=== PATIENT | female | born 1955 | race Caucasian/White ===

== ENCOUNTER 2016-05-06 19:56 | Emergency (ER) | payer MEDICARE, MEDICAID ==
[~2016-05-06] VITALS: Ht 167.6 cm; Wt 144.2 kg
[2016-05-06 19:56] VITALS: BP 137/64
[~2016-05-06 19:56] MED LIST: ALLO100T PO; ALPR1TAB10 PO; AMIT25TA PO; ASPI1TAB2 PO; CHOL100013 PO; CYCL10TA2 PO; DIVA125T PO; DULO60CA6 PO; FENT1PAT17 TD; FURO80TA72 PO; GABA-586 PO; HYDR25TA9 PO; INSU100C4 SQ; INSU100I17 SQ; INSU100I27 SQ; INSU100V8 SQ; LEVO100T PO; LISI10TA2 PO; MECL25TA3 PO; METF10002 PO; OXYC-250 PO; PANT40TA5 PO; POLY17PO5 PO; SUCR1TAB29 PO; TRIA15CR3 TP; Vitamin B 12
[2016-05-06] MEDS ORDERED: ACETAMINOPHEN 500 MG TABLET PO ONE (21:15)
--- NOTE | 2016-05-07 03:05 | ED.ADGEN ---
Past Medical History Past Medical History: Anemia, Arthritis, CHF, Diabetes-Type II, Fibromyalgia, Hypertension, P.U.D., Other Additional Past Medical Histor: HERNIA,SLEEP APNEA,fibromyalgia,DM uncontrolled ,Psorisis,IBS,OA,NEUROPATHY Past Surgical History: Appendectomy, Cholecystectomy, Other Additional Past Surgical Histo: LT KNEE SURGERY, LT CARPAL TUNNEL SURGERY Alcohol Use: Rarely Drug Use: None Adult General Chief Complaint Chief Complaint: MECHANICAL FALL HPI HPI Patient is a 60 year old woman, history of type 2 diabetes mellitus, hypertension, congestive heart failure, GI bleed, fibromyalgia, who presents to the emergency department for evaluation after mechanical fall. Patient states that she was walking to answer her door at home, when "my feet got tangled up", and she fell forward losing her balance and striking her head against the lever on her recliner in her living room. Patient states that she did not strike her head against the floor at that point, she fell landing onto her hands and knees. She states she was able to get up afterwards. Is complaining of pain in the right for head, denies any underlying headache, any vision changes, any nausea or vomiting, any weakness emesis or tingling, any chest pain, shortness of breath, GI or complaints, preceding symptoms. No respiratory complaints. No dizziness or lightheadedness. Noted to have swelling and a small area of abrasion over the right forehead. She does not take any blood thinners. Review of Systems Review of Systems Constitutional: Denies fever or chills. [] Eyes: Denies change in visual acuity. [] HENT: Denies nasal congestion or sore throat. [] Respiratory: Denies cough or shortness of breath. [] Cardiovascular: Denies chest pain or edema. [] GI: Denies abdominal pain, nausea, vomiting, bloody stools or diarrhea. [] : Denies dysuria. [] Musculoskeletal: Denies back pain or joint pain. [Pain and swelling over the right for head.] Integument: Denies rash. [] Neurologic: Denies headache, focal weakness or sensory changes. [] Endocrine: Denies polyuria or polydipsia. [] Lymphatic: Denies swollen glands. [] Psychiatric: Denies depression or anxiety. [] Current Medications Current Medications Current Medications Medications (Trade) Dose Ordered Sig/Jt Start Time Stop Time Status Last Admin Dose Admin Acetaminophen (Tylenol) 1,000 mg 1X ONCE 05/06/16 21:15 05/06/16 21:16 DC 05/06/16 21:38 1,000 MG Allergies Allergies Allergies Coded Allergies Type Severity Reaction Last Updated Verified milnacipran HCl Allergy Severe severe elevation of B/P 01/16/16 Yes pregabalin Allergy Intermediate swelling of extremities 01/16/16 Yes erythromycin base Allergy Mild rash 05/06/16 Yes Physical Exam Physical Exam Constitutional: Well developed, well nourished, no acute distress, non-toxic appearance. [] HENT: Normocephalic, patient with contusion noted over the right for head, with small overlying abrasion, no hemotympanum, no septal hematoma, bilateral external ears normal, oropharynx moist, no oral exudates, nose normal. [] Eyes: PERRLA, EOMI, conjunctiva normal, no discharge. [] Neck: Normal range of motion, no midline or paraspinal tenderness, supple, no stridor. [] Cardiovascular:Heart rate regular rhythm, no murmur, S1, S2. No rubs or gallops. [] Lungs & Thorax: Bilateral breath sounds clear to auscultation, no wheezing, rhonchi, rales. No chest wall tenderness or crepitus. [] Abdomen: Bowel sounds normal, soft, no tenderness, no masses, no pulsatile masses. [] Skin: Warm, dry, no erythema, no rash. [] Back: No midline or paraspinal tenderness, no CVA tenderness. [] Extremities: No tenderness, no cyanosis, no clubbing, ROM intact, no edema. [] Neurologic: Alert and oriented X 3, normal motor function, normal sensory function, no focal deficits noted. [] Psychologic: Affect normal, judgement normal, mood normal. [] Current Patient Data Vital Signs Vital Signs Date Time Temp Pulse Resp B/P Pulse Ox O2 Delivery O2 Flow Rate FiO2 05/06/16 19:56 98.3 91 20 137/64 98 Room Air 98.3 EKG EKG Not indicated. [] Radiology/Procedures Radiology/Procedures Not indicated. [] Course & Med Decision Making Course & Med Decision Making Pertinent Labs and Imaging studies reviewed. (See chart for details) Patient with a small contusion on her right forehead, normal neurologic examination, does not take any blood thinners, has no other concerning history and her report. We did discuss the utility of imaging of the head, at this point base of the patient's history and examination, I do not believe imaging is warranted, patient is in agreement with this assessment. We discussed concerning symptoms that would warrant return to the emergency department, patient voiced understanding with this as well, at this point she would like to be discharged home, and will return if any concerning symptoms develop. She has no other concerning findings on examination, was given Tylenol in the ED, and an ice pack for for her head. She did arrange for transport from the emergency room, and exited the ED without issue. Dragon Disclaimer Dragon Disclaimer This electronic medical record was generated, in whole or in part, using a voice recognition dictation system. Departure Impression: Primary Impression: Forehead contusion Disposition: 01 HOME, SELF-CARE Condition: STABLE Problem Qualifiers Primary Impression: Forehead contusion Encounter type: initial encounter Qualified Code: S00.83XA - Contusion of other part of head, initial encounter ALAYNA QUINONES DO May 07, 2016 03:05
== END 2016-05-06 21:44 | disposition home or self-care (01) ==
LOC: ER 19:56
DX: S00.83XA Contusion of other part of head, initial encounter (principal); E11.40 Type 2 diabetes mellitus with diabetic neuropathy, unspecified; I11.0 Hypertensive heart disease with heart failure; I50.9 Heart failure, unspecified; M79.7 Fibromyalgia; M19.90 Unspecified osteoarthritis, unspecified site; Z90.49 Acquired absence of other specified parts of digestive tract; G47.30 Sleep apnea, unspecified; Z88.1 Allergy status to other antibiotic agents; Z88.8 Allergy status to other drugs, medicaments and biological substances; W19.XXXA Unspecified fall, initial encounter; Y93.01 Activity, walking, marching and hiking; Y92.89 Other specified places as the place of occurrence of the external cause; Y99.8 Other external cause status
CPT/HCPCS: 99284

== ENCOUNTER → 2016-10-24 | Outpatient (CLI) | payer MEDICARE, MEDICAID ==
[~2016-10-24] MED LIST changes: +METF-620 PO; -METF10002 PO; -OXYC-250 PO; +OXYC-328 PO; +POLY17PO29 PO; -POLY17PO5 PO; -SUCR1TAB29 PO; +SUCR1TAB35 PO
--- NOTE | 2016-10-24 13:26 | KCIC ---
Clinical Indication: Postmenopausal screening Technique: Bone Densitometry was performed with dual photon absorption of the lumbar spine and proximal left femur. Comparison is from November 21, 2013. Findings: Lumbar Spine: Bone density is 1.437 g/cm2 for L1-L4. T-Score is 3.5 and Z-score 5.0. Age-matched percentage is 163 %. Left Femur Total: Bone density is 1.411 g/cm2. T-Score is 3.8 and Z-score 4.9. Age-matched percentage is 172%. Spine bone mineral density has decreased by 2.4 percent from prior. Hip bone mineral density has decreased by 0.5 percent from prior. Impression: 1. Normal bone mineral density in the lumbar spine. 2. Normal bone marrow density in the left hip. Electronically signed by: Maximus Rhodes MD (10/24/2016 1:23 PM) [facility]
--- NOTE | 2016-10-24 18:22 | KCIC ---
Bilateral digital screening mammograms: Reason for examination: Routine screening. Comparison is made to previous studies dated 07/03/2015 and 06/26/2014. The skin and nipples show no abnormalities. No abnormal axillary lymph nodes are seen. The breast parenchyma shows scattered fibroglandular density. (Breast density: Category B.) There continue to be small nodules consistent with intramammary lymph nodes in the right breast. There are no new dominant masses, suspicious calcifications or architectural distortions. Some benign calcifications are present. Impression: No evidence of malignancy. Recommend routine screening. BI-RADS category 2: Benign "Our facility is accredited by the [employer] Mammography Program." This patient's information has been entered into a reminder system for the patient to be notified with the results of her examination and a target date for the next mammogram. Electronically signed by: Shauna Gallegos MD (10/24/2016 6:19 PM) [facility]
== END | disposition home or self-care (01) ==
LOC: KCIC MAMMO 11:28
PROVIDERS: ATTEND Internal Medicine
DX: Z12.31 Encounter for screening mammogram for malignant neoplasm of breast (principal); Z78.0 Asymptomatic menopausal state
CPT/HCPCS: 77080; G0202; 77067

== ENCOUNTER 2017-03-03 08:18 | Outpatient (CLI) | payer MEDICARE, MEDICAID ==
[2017-03-03] VITALS (9 sets, daily range): BP systolic 93–145; BP diastolic 49–82
[~2017-03-03] VITALS: Ht 165.1 cm; Wt 149.7 kg
[~2017-03-03 08:18] MED LIST changes: +ASPI-621 PO; -ASPI1TAB2 PO; +LIDOCAINE 2% 20 ML VIAL. ONE
[2017-03-03 09:13] LABS: HEMATOCRIT 35.8 % (36.0-47.0); HEMOGLOBIN 11.4 g/dL (12.0-15.5); RED BLOOD COUNT 4.1 x10^6/uL (3.50-5.40); RED CELL DISTRIBUTION WIDTH 16.3 % (11.5-14.5)
[2017-03-03] MEDS ORDERED: MIDAZOLAM HCL/PF 5 MG/5 ML VIAL. ONE (09:15)
[2017-03-03] MEDS ORDERED: NITROGLYCERIN 200 MCG/2 ML SYRINGE FOR CATH/VASC LAB. ONE (09:15)
[2017-03-03] MEDS ORDERED: fentaNYL PF VIAL 100 MCG/2 ML VIAL ONE (09:15)
[2017-03-03] MEDS ORDERED: HEPARIN for IV BOLUS 10,000 UNIT/10 ML VIAL. ONE (09:15)
[2017-03-03] MEDS ORDERED: VERAPAMIL 5 MG/2 ML VIAL. ONE (09:15)
[2017-03-03 09:22] LABS: PROTHROMBIN TIME PATIENT 12.5 SEC (11.7-14.0)
[2017-03-03 09:33] LABS: CALCIUM 9.2 mg/dL (8.5-10.1); GFR 56.4; POTASSIUM 4.4 mmol/L (3.5-5.1)
[2017-03-03] MEDS ORDERED: LIDOCAINE 2% 20 ML VIAL. ONE (09:37)
[2017-03-03] MEDS ORDERED: IOHEXOL 300 MG/ML 100ML VIAL. ONE ×2 (09:37→09:38)
--- NOTE | 2017-03-03 09:52 | PDOC ---
MODERATE SEDATION ASSESSMENT RISKS/ALTERNATIVES Risks/Alternatives Risks and alternatives of this type of sedation and procedure discussed with: RISK/ALTERNATIVES: Patient H & P ON CHART H & P H & P on chart and reviewed for co-morbid conditions and appropriate labs. H&P ON CHART: Yes STATUS PREG STATUS ASSESSED: N/A MEDS/ALLERGIES REVIEWED Meds/Allergies Reviewed Medications and Allergies including time and route of recently administered narcotics and sedatives. MEDS/ALLERGIES REVIEWED: Yes ASA RATING ASA RATING: II AIRWAY ASSESSMENT Airway Assessment Airway patency, oral function limitations, presence of caps, crowns, dentures, partials, and ability to extend neck assessed. AIRWAY ASSESSMENT: Yes MALLAMPATI SCORE MALLAMPATI SCORE: II PRE-SEDATION ASSESSMENT PRE-SEDATION ASSESSMENT: Yes NEGRITO CAM MD Mar 03, 2017 09:52
[2017-03-03] MEDS ORDERED: VERAPAMIL 5 MG/2 ML VIAL. IART ONE (10:00)
[2017-03-03] MEDS ORDERED: LIDOCAINE 2% 20 ML VIAL. IJ ONE (10:00)
[2017-03-03] MEDS ORDERED: MIDAZOLAM HCL/PF 5 MG/5 ML VIAL. IV ONE (10:00)
[2017-03-03] MEDS ORDERED: HEPARIN for IV BOLUS 10,000 UNIT/10 ML VIAL. IART ONE (10:00)
[2017-03-03] MEDS ORDERED: NITROGLYCERIN 200 MCG/2 ML SYRINGE FOR CATH/VASC LAB. IART ONE (10:00)
[2017-03-03] MEDS ORDERED: CONTRAST GIVEN MC PRN (10:00)
[2017-03-03] MEDS ORDERED: IOHEXOL 300 MG/ML 100ML VIAL. IART ONE (10:00)
[2017-03-03] MEDS ORDERED: fentaNYL PF VIAL 100 MCG/2 ML VIAL IV ONE (10:00)
[2017-03-03] MEDS ORDERED: IV 1/2 NORMAL SALINE 1,000 ML IV SCH (10:27)
[2017-03-03] MEDS ORDERED: NITROGLYCERIN SUBLINGUAL 0.4 MG BOTTLE OF 25. SL PRN (10:30)
--- NOTE | 2017-03-03 10:37 | CARD ---
APPROVED REPORT Procedure(s) performed: Left heart catheterization, selective coronary angiography via right transrad ial approach Sedation time: 33 minutes INDICATION The indication(s) include : Recurrent and refractory chest pain concerning for unstable angina. CASE TECHNIQUE During this case, Fluoroscopy and low osmolar contrast were used for imaging. PROCEDURE NARRATIVE After explaining the risks, benefits and alternative options, informed consent was obtained from agnes ent. Patient was brought to the cardiac Cnc Cutting Operator and right wrist was prepped and draped in the usual fashion after confirming a positive modified Marek's test. Arterial access was obtained in the the [facility] radial artery and a 6 Japanese sheath was inserted. After initial attempts to engage coronary arteri es with 6 Japanese Bradford catheter were unsuccessful, 6 Japanese JL3.5 and 6 Japanese JR4 catheters were us ed to perform selective angiography of the left and right coronary arteries. LVEDP and transaortic gr adients were measured. Left ventriculography was not performed due to recent noninvasive assessment o f left ventricle systolic function. Patient tolerated the procedure well. Hemostasis was achieved us ing TR band. There were no immediate complications. The following findings were noted. FINDINGS 1. Hemodynamics: Left ventricular end-diastolic pressure of 22 mmHg. No pullback gradient across th e aortic valve. 2. Coronary angiography: a. The left main coronary artery arose from the left sinus of Valsalva, was short and gave rise to t he left anterior descending and left circumflex arteries and did not show any significant stenosis. b. The left anterior descending artery did not show any significant stenosis. c. The left circumflex artery did not show any significant stenosis. d. The right coronary artery was a large and dominant vessel arising from the right sinus of Valsalv a that did not show any significant stenosis. Conclusion No significant coronary artery disease Recommendations Cardiac Risk Reduction Program
== END 2017-03-03 12:45 | disposition home or self-care (01) ==
LOC: CCL 08:18
PROVIDERS: ATTEND Internal Medicine Cardiovascular Disease
DX: R07.9 Chest pain, unspecified (principal); I50.9 Heart failure, unspecified; E78.00 Pure hypercholesterolemia, unspecified; I11.0 Hypertensive heart disease with heart failure; E11.9 Type 2 diabetes mellitus without complications; E03.9 Hypothyroidism, unspecified; F41.9 Anxiety disorder, unspecified; F17.200 Nicotine dependence, unspecified, uncomplicated; M19.90 Unspecified osteoarthritis, unspecified site; D64.9 Anemia, unspecified; Z86.14 Personal history of Methicillin resistant Staphylococcus aureus infection; Z90.49 Acquired absence of other specified parts of digestive tract; Z96.652 Presence of left artificial knee joint; Z98.890 Other specified postprocedural states
CPT/HCPCS: 36415; 80048; 85027; 85610; 93458; 99152; 99153; C1769; C1892; J1644; J2250; J3010; J3490; Q9967; J2001

== ENCOUNTER → 2017-08-23 | Outpatient (CLI) | payer MEDICARE, MEDICAID | END | disposition home or self-care (01) | LOC: KCIC MRI 12:38 | DX: M19.011 Primary osteoarthritis, right shoulder (principal); M25.411 Effusion, right shoulder; M75.111 Incomplete rotator cuff tear or rupture of right shoulder, not specified as traumatic; M25.78 Osteophyte, vertebrae; M43.16 Spondylolisthesis, lumbar region; M48.07 Spinal stenosis, lumbosacral region | CPT/HCPCS: 72148; 73221 ==

== ENCOUNTER → 2017-08-23 | Outpatient (CLI) | payer MEDICARE, MEDICAID ==
[2017-08-23] MEDS: LIDOCAINE 1% Multi-Dose 20 ML VIAL. ID (15:20)
[2017-08-23] MEDS: IOHEXOL 300 MG/ML 10ML VIAL. INT ART (15:20)
[2017-08-23] MEDS: methylPREDNISolone ACETATE 40 MG/ML VIAL. INT ART (15:20)
[2017-08-23] MEDS: BUPIVACAINE MPF 0.5% 10 ML VIAL for KCIC. IJ (15:20)
== END | disposition home or self-care (01) ==
LOC: KCIC 12:30
DX: M19.011 Primary osteoarthritis, right shoulder (principal); I50.9 Heart failure, unspecified; E11.42 Type 2 diabetes mellitus with diabetic polyneuropathy; E78.00 Pure hypercholesterolemia, unspecified; I11.0 Hypertensive heart disease with heart failure; M19.90 Unspecified osteoarthritis, unspecified site; E03.9 Hypothyroidism, unspecified; F17.200 Nicotine dependence, unspecified, uncomplicated; D64.9 Anemia, unspecified; F41.9 Anxiety disorder, unspecified; Z98.890 Other specified postprocedural states; Z90.49 Acquired absence of other specified parts of digestive tract; Z85.41 Personal history of malignant neoplasm of cervix uteri; Z96.652 Presence of left artificial knee joint
CPT/HCPCS: 20610; 77002; J1030; Q9967

== ENCOUNTER → 2017-11-20 | Outpatient (CLI) | payer MEDICARE ==
[2017-03-03 12:29] VITALS: BP 102/56
[~2017-11-20] MED LIST changes: +ACET500T33 PO; +BISA-42 PO; +BUPIVACAINE MPF 0.5% 10 ML VIAL for KCIC. IJ ONE; +IOHEXOL 300 MG/ML 50 ML VIAL. INT ART ONE; +LIDOCAINE 1% Multi-Dose 20 ML VIAL. ID ONE; -LIDOCAINE 2% 20 ML VIAL. ONE; -METF-620 PO; +METF10003 PO; +MONT10TA9 PO; +TRAZ-85 PO; +methylPREDNISolone ACETATE 40 MG/ML VIAL. INT ART ONE
--- NOTE | 2017-11-20 16:02 | KCIC ---
Fluoroscopic guided right shoulder steroid injection dated 11/20/2017: No comparison available. Clinical Indication: Pain, steroid injection Technical factors: The potential benefits and risks of the procedure were discussed with the patient and informed consent was obtained. The anterior right shoulder was prepped and draped in a sterile fashion. After local anesthesia, a 22-gauge spinal needle was inserted into the right shoulder joint using an anterior approach.Following negative aspiration, a solution containing 4 cc lidocaine, 4 cc Omnipaque 300, 4 cc bupivacaine and 80 mg Depo-Medrol was injected the joint space. The needle was then removed and a dry sterile dressing was applied. The patient tolerated the procedure well. No immediate palpitations. 3 minutes 31 seconds fluoroscopic time used for the study. One image. Findings: Fluoroscopic image shows contrast material the joint space. There is also some extra articular contrast along the margin of the glenohumeral joint space. Impression: Fluoroscopic guided right shoulder steroid injection. Electronically signed by: Pasquale Osborne MD (11/20/2017 3:59 PM) [facility]
== END | disposition home or self-care (01) ==
LOC: KCIC 13:44
PROVIDERS: ATTEND Nurse Practitioner Gerontology
DX: M19.011 Primary osteoarthritis, right shoulder (principal); E03.9 Hypothyroidism, unspecified; F41.9 Anxiety disorder, unspecified; D64.9 Anemia, unspecified; I11.0 Hypertensive heart disease with heart failure; I50.9 Heart failure, unspecified; F17.200 Nicotine dependence, unspecified, uncomplicated; E78.00 Pure hypercholesterolemia, unspecified; M48.07 Spinal stenosis, lumbosacral region; G47.30 Sleep apnea, unspecified; E11.9 Type 2 diabetes mellitus without complications; Z79.4 Long term (current) use of insulin; Z79.899 Other long term (current) drug therapy; Z98.890 Other specified postprocedural states; Z85.41 Personal history of malignant neoplasm of cervix uteri; Z96.652 Presence of left artificial knee joint; Z90.49 Acquired absence of other specified parts of digestive tract
CPT/HCPCS: 20610; 77002; J1030; Q9967

== ENCOUNTER → 2017-11-20 | Outpatient (CLI) | payer MEDICAID, MEDICARE ==
[2017-03-03 12:29] VITALS: BP 102/56
--- NOTE | 2017-11-20 16:00 | KCIC ---
Fluoroscopic guided left shoulder steroid injection dated 11/20/2017: No comparison available. Clinical Indication: Gadolinium injection for MRI. Technical factors: The potential benefits and risks of the procedure were discussed with the patient and informed consent was obtained. The anterior left shoulder was prepped and draped in a sterile fashion. After local anesthesia, a 22-gauge spinal needle was inserted into the left shoulder joint using an anterior approach.Following negative aspiration, a solution containing 4 cc lidocaine, 4 cc Omnipaque 300, 4 cc bupivacaine and 80 mg Depo-Medrol was injected the joint space. The needle was then removed and a dry sterile dressing was applied. The patient tolerated the procedure well. No immediate palpitations. 30 seconds fluoroscopic time used for the study. One image. Findings: Single fluoroscopic image shows needle tip at the medial inferior 1/3 of the humeral head. Contrast material extends into the joint space. Impression: Fluoroscopic guided steroid injection as described. Electronically signed by: Pasquale Osborne MD (11/20/2017 3:57 PM) [facility]
== END | disposition home or self-care (01) ==
LOC: KCIC 13:46
PROVIDERS: ATTEND Orthopaedic Surgery Sports Medicine
DX: G89.29 Other chronic pain (principal); E03.9 Hypothyroidism, unspecified; F41.9 Anxiety disorder, unspecified; D64.9 Anemia, unspecified; M19.011 Primary osteoarthritis, right shoulder; I11.0 Hypertensive heart disease with heart failure; I50.9 Heart failure, unspecified; F17.200 Nicotine dependence, unspecified, uncomplicated; G47.30 Sleep apnea, unspecified; E11.9 Type 2 diabetes mellitus without complications; Z96.652 Presence of left artificial knee joint; Z79.899 Other long term (current) drug therapy; Z79.4 Long term (current) use of insulin; Z90.49 Acquired absence of other specified parts of digestive tract
CPT/HCPCS: 20610; 77002; J1030; Q9967

== ENCOUNTER → 2018-07-10 | Outpatient (CLI) | payer MEDICAID, MEDICARE ==
[2017-03-03 12:29] VITALS: BP 102/56
[~2018-07-10] MED LIST changes: -BUPIVACAINE MPF 0.5% 10 ML VIAL for KCIC. IJ ONE; -GABA-586 PO; +GABA300C18 PO; +HYDR-2145 PO; -HYDR25TA9 PO; -IOHEXOL 300 MG/ML 50 ML VIAL. INT ART ONE; -LIDOCAINE 1% Multi-Dose 20 ML VIAL. ID ONE; -METF10003 PO; +METF10007 PO; -OXYC-328 PO; +OXYC1TAB22 PO; +TRAZ-118 PO; -TRAZ-85 PO; -methylPREDNISolone ACETATE 40 MG/ML VIAL. INT ART ONE
--- NOTE | 2018-07-10 15:36 | CARD ---
MR#: [id number] Date of Study: 07/10/2018 Ordering Physician: NEGRITO ALDANA, Referring Physician: NEGRITO ALDANA, Tech: Radha Starr APPROVED REPORT EXAM: Two-dimensional and M-mode echocardiogram with Doppler and color Doppler. Other Information Quality : FairHR: 85bpm Technically limited study due to body habitus INDICATION Hypertension/HCVD RISK FACTORS Diabetes Previous smoker 2D DIMENSIONS IVSd1.1 (0.7-1.1cm)Aortic Root(2D)3.6 (2.0-3.7cm) LVDd4.6 (3.9-5.9cm)LVOT Diameter2.4 (1.8-2.4cm) PWd1.0 (0.7-1.1cm)LVDs3.3 (2.5-4.0cm) FS (%) 26.7 %SV50.0 ml LVEF(%)52.3 (>50%) Aortic Valve AoV Peak Destin.145.4cm/sAoV VTI29.2cm AO Peak GR.8.5mmHgLVOT Peak Destin.119.3cm/s LVOT VTI 26.96cmAO Mean GR.5mmHg CYNTHIA (VMAX)2.51hg6TXT (VTI)4.28cm2 Mitral Valve MV E Atmoyjqo21.2cm/sMV DECEL HNWU530ob MV A Eceqwelb829.8cm/sMV KCS67tb E/A Ratio0.6MVA (PHT)5.07cm2 TDI E/Lateral E'9.1E/Medial E'8.7 Pulmonary Valve PV Peak Ihtbltoa137.4cm/sPV Peak Grad.6mmHg Tricuspid Valve RAP [id number] Pulmonary Vein S1 Mhgeocgt90.2cm/sD2 Ykgtmymh30.1cm/s PVa [id number] LEFT VENTRICLE The left ventricle is normal size. There is normal left ventricular wall thickness. The left ventricu lar systolic function is normal. The Ejection Fraction is 55-60%. There is normal LV segmental wall m otion. Transmitral Doppler flow pattern is Grade I-abnormal relaxation pattern. RIGHT VENTRICLE The right ventricle is normal size. There is normal right ventricular wall thickness. The right ventr icular systolic function is normal. ATRIA The left atrium is borderline dilated. The right atrium size is normal. The interatrial septum is int act with no evidence for an atrial septal defect or patent foramen ovale as noted on 2-D or Doppler i maging. AORTIC VALVE The aortic valve is normal in structure and function. Doppler and Color Flow revealed trace aortic re gurgitation. There is no significant aortic valvular stenosis. MITRAL VALVE The mitral valve is normal in structure and function. There is no evidence of mitral valve prolapse. There is no mitral valve stenosis. Doppler and Color Flow revealed no mitral valve regurgitation note d. TRICUSPID VALVE The tricuspid valve is not well visualized. Doppler and Color Flow revealed no tricuspid valve regurg itation noted. PULMONIC VALVE The pulmonic valve is not well visualized. Doppler and Color Flow revealed no pulmonic valvular regur gitation. GREAT VESSELS The aortic root is mildly enlarged. The IVC was not well visualized. PERICARDIAL EFFUSION There is no evidence of significant pericardial effusion. Critical Notification Critical Value: No <Conclusion> The left ventricular systolic function is normal. The Ejection Fraction is 55-60%. There is normal LV segmental wall motion. Transmitral Doppler flow pattern is Grade I-abnormal relaxation pattern. Doppler and Color Flow revealed trace aortic regurgitation. There is no evidence of significant pericardial effusion. Signed by : Negrito Aldana, Electronically Approved : 07/10/2018 15:35:46
== END | disposition home or self-care (01) ==
LOC: ECHO 13:23
PROVIDERS: ATTEND Internal Medicine Cardiovascular Disease
DX: I77.89 Other specified disorders of arteries and arterioles (principal); I10 Essential (primary) hypertension; E11.9 Type 2 diabetes mellitus without complications; Z87.891 Personal history of nicotine dependence
CPT/HCPCS: 93306

== ENCOUNTER → 2018-08-07 | Outpatient (CLI) | payer MEDICARE ==
[2017-03-03 12:29] VITALS: BP 102/56
--- NOTE | 2018-08-07 14:33 | RESP ---
DATE OF SERVICE: 08/07/2018 PULMONARY FUNCTION TEST REFERRED BY: Luann Gutierrez APRN The patient's FVC was 2.65, which is 78% predicted; FEV1 2.16, which is 83% predicted. The FEV1/FVC ratio was normal. Total lung capacity was 89% predicted. Residual volume normal. Diffusion capacity 82% predicted. IMPRESSION: 1. No significant obstructive airway disease. 2. No significant restrictive lung disease. 3. Normal diffusion capacity. 4. No bronchodilators given. HUI AVITIA MD DR: RUMA/kimberly JOB#: [id number] / [id number]
== END | disposition home or self-care (01) ==
LOC: PF 10:05
PROVIDERS: ATTEND Nurse Practitioner Gerontology
DX: R06.02 Shortness of breath (principal)
CPT/HCPCS: 94010; 94729

== ENCOUNTER → 2018-08-21 | Outpatient (CLI) | payer MEDICARE ==
[2017-03-03 12:29] VITALS: BP 102/56
--- NOTE | 2018-08-22 13:19 | SLEEP ---
DATE OF STUDY: 08/21/2018 ATTENDING PROVIDER: Kayce Gutierrez APRN The patient is a 62-year-old who weighs 335 pounds with a BMI of 56. The patient had a sleep study in 2014 that was positive for LUIS and has been on CPAP at 14 cm water. She was referred back for requalification for a new equipment. During the night study, the patient spent 442 minutes in bed and slept for 307 minutes with a sleep efficiency of 69%. Sleep latency was prolonged at 64 minutes with absent REM sleep. Overall sleep architecture showed increased stage 1 and stage 2 sleep, normal slow wave sleep and absent REM sleep. During the initial diagnostic portion of the study, the patient slept for 148 minutes. During that time there were 2 obstructive apneas, 1 mixed apnea, 1 central apnea and 45 hypopneas. The patient's apnea-hypopnea index was 20 per hour, supine index 20 per hour. REM sleep was not observed. EKG monitoring revealed an average heart rate of 86 beats per minute, no sustained arrhythmias were observed. Nocturnal oximetry study revealed a mean oxygen saturation of 88% with the lowest of 81%. 38% of time oxygen saturation remained between 80% and 89%. PLMS were seen at index of 20 per hour and 1 per hour caused EEG arousals. The patient was started on CPAP at a pressure of 5 cm water and titrated up to 14 cm water. At the final pressure the patient slept for 55 minutes. The patient had supine sleep throughout, but no REM sleep observed. The patient's AHI was reduced to 1 per hour and oxygen saturation remained above 89%. The patient used a small size nasal mask. IMPRESSION: 1. Moderate sleep apnea-hypopnea syndrome at an apnea-hypopnea index of 20 per hour. Absence of REM sleep can underestimate the severity of sleep apnea. 2. Nocturnal hypoxia secondary to obstructive sleep apnea and hypoventilation, but resolved with CPAP. 3. Moderate periodic limb movements of sleep. RECOMMENDATIONS: 1. CPAP at 14 cm water completely eliminated the patient's sleep apnea, should be used on a nightly basis. 2. Follow up in 4-6 weeks to assess compliance with CPAP and to document clinical improvement. 3. Weight loss is strongly advised. 4. Avoid [employer] depressants. 5. Cautioned regarding driving until symptoms of sleep apnea have resolved with the use of CPAP. 6. PLMS does not need to be treated unless the patient has symptoms of restless legs during the day. HUI AVITIA MD DR: RUMA/kimberly JOB#: [id number] / [id number] KAYCE Brown APRN
== END | disposition home or self-care (01) ==
LOC: SLPLAB 20:59
PROVIDERS: ATTEND Nurse Practitioner Gerontology
DX: G47.33 Obstructive sleep apnea (adult) (pediatric) (principal); G47.34 Idiopathic sleep related nonobstructive alveolar hypoventilation; G47.61 Periodic limb movement disorder
CPT/HCPCS: 95810

== ENCOUNTER → 2018-11-06 | Outpatient (CLI) | payer MEDICARE ==
[2017-03-03 12:29] VITALS: BP 102/56
[~2018-11-06] MED LIST changes: +MONT10TA49 PO; -MONT10TA9 PO; -PANT40TA5 PO; +PANT40TA77 PO
--- NOTE | 2018-11-06 17:11 | KCIC ---
Examination: 2 views of the chest HISTORY: History of shortness of breath COMPARISON: None available. FINDINGS: The cardiomediastinal silhouette grossly appears unremarkable. Minimal prominent bilateral interstitial lung markings. Mild degenerative changes thoracic spine. IMPRESSION: 1. Probable mild congestive changes. Electronically signed by: Fredo Jamil MD (11/06/2018 5:08 PM) [facility]
--- NOTE | 2018-11-06 17:37 | KCIC ---
4 view lumbar spine series Clinical indications: Acute midline low back pain. Several falls. FINDINGS: No compression fracture or discitis or lytic process is evident. Grade 1 anterolisthesis of L4-5 and L5-S1 is seen. This is more prominent at L4-5. Degenerative facet arthropathy is seen at these 2 levels. No definite lucent pars defect is seen at these 2 levels. Degenerative disc space narrowing and mild degenerative endplate spurring is seen from L3-4 through L5-S1. The transverse processes are intact. IMPRESSION: No acute compression fracture. Grade 1 anterolisthesis of L4-5 and L5-S1. Electronically signed by: Zac Paz MD (11/06/2018 5:33 PM) [facility]
== END | disposition home or self-care (01) ==
LOC: KCIC 15:07
PROVIDERS: ATTEND Nurse Practitioner Gerontology
DX: M43.17 Spondylolisthesis, lumbosacral region (principal); M48.07 Spinal stenosis, lumbosacral region; M46.86 Other specified inflammatory spondylopathies, lumbar region; M46.07 Spinal enthesopathy, lumbosacral region; M47.814 Spondylosis without myelopathy or radiculopathy, thoracic region
CPT/HCPCS: 71046; 72100

== ENCOUNTER → 2019-11-28 | Outpatient (CLI) | payer MEDICAID, MEDICARE ==
[2017-03-03 12:29] VITALS: BP 102/56
[~2019-11-28] MED LIST changes: +LEVO-101 PO; -LEVO100T PO; +MECL-75 PO; -MECL25TA3 PO
--- NOTE | 2019-11-29 17:13 | KCIC ---
BILATERAL SCREENING MAMMOGRAM History: Routine screening. Comparison: Bilateral mammogram June 18, 2018. Technique: Routine bilateral digital mammogram views were obtained. Findings: Breast Tissue Density B : There are scattered areas of fibroglandular density. There are multiple bilateral benign calcifications. There is stable intramammary lymph node in the upper outer right breast at mid depth. There are no dominant masses, suspicious microcalcifications, or architectural distortion. IMPRESSION: No mammographic evidence of malignancy. Recommend routine screening. BI-RADS category 2: Benign findings. The images were reviewed with computer aided detection. Patient information is entered into the reminder system with a target due date for the next screening mammogram. Mammography is the most sensitive method for finding small breast cancers, but it does not detect them all and is not a substitute for careful clinical examination. A negative mammogram does not negate a clinically suspicious finding and should not result in delay in biopsying a clinically suspicious abnormality. "Our facility is accredited by the [employer] Mammography Program." Electronically signed by: Adrian Higginbotham MD (11/29/2019 5:10 PM) [facility]
== END | disposition home or self-care (01) ==
LOC: KCIC MAMMO 13:57
PROVIDERS: ATTEND Nurse Practitioner Gerontology
DX: Z12.31 Encounter for screening mammogram for malignant neoplasm of breast (principal); N64.89 Other specified disorders of breast
CPT/HCPCS: 77067

== ENCOUNTER 2020-05-21 17:35 | Emergency (ER) | payer MEDICARE ==
[~2020-05-21] VITALS: Ht 167.6 cm; Wt 150.0 kg
[~2020-05-21 17:35] MED LIST changes: +LISI10TA16 PO; -LISI10TA2 PO
[2020-05-21] MEDS ORDERED: FAMOTIDINE 20 MG/2 ML VIAL IVP ONE (18:30)
[2020-05-21] MEDS ORDERED: ONDANSETRON PF 4 MG/2 ML VIAL. IVP ONE (18:30)
[2020-05-21] MEDS ORDERED: MORPHINE SULFATE 10 MG/ML VIAL. IV ONE (18:30)
[2020-05-21 18:34] LABS: BILIRUBIN,URINE NEGATIVE (NEG); CLARITY,URINE CLEAR; COLOR,URINE YELLOW; NITRITE,URINE NEGATIVE (NEG); PROTEIN,URINE NEGATIVE (NEG-TRACE)
[2020-05-21 18:40] LABS: BARBITURATES NEG (NEG); BENZODIAZEPINES NEG (NEG); CANNABINOIDS NEG (NEG); COCAINE NEG (NEG); METHADONE NEG (NEG); OPIATES POS (NEG); PHENCYCLIDINE NEG (NEG)
[2020-05-21 18:41] LABS: AMPHETAMINE/METHAMPHETAMINE NEG (NEG)
[2020-05-21 18:45] LABS: BACTERIA,URINE FEW /HPF (0-FEW); RBC,URINE 0 /HPF (0-2)
[2020-05-21 19:19] LABS: BASO # 0.1 x10^3/uL (0.0-0.2); BASO % 1 % (0-3); EOS # 0.3 x10^3/uL (0.0-0.7); EOS % 3 % (0-3); HEMATOCRIT 25.9 % (36.0-47.0); HEMOGLOBIN 7.9 g/dL (12.0-15.5); LYMPH % 19 % (24-48); MEAN CORPUSCULAR HEMOGLOBIN 22 pg (25-35); MEAN CORPUSCULAR HGB CONC 30 g/dL (31-37); MEAN CORPUSCULAR VOLUME 73 fL (79-100); MONO % 9 % (0-9); NEUT # 7.4 x10^3/uL (1.8-7.7); NEUT % 68 % (31-73); PLATELET COUNT 352 x10^3/uL (140-400); RED BLOOD COUNT 3.54 x10^6/uL (3.50-5.40); RED CELL DISTRIBUTION WIDTH 17.2 % (11.5-14.5); WHITE BLOOD COUNT 10.8 x10^3/uL (4.0-11.0)
[2020-05-21 19:31] LABS: CALCIUM 9.5 mg/dL (8.5-10.1); GFR 55.8
[2020-05-21 19:35] LABS: ALBUMIN 3.2 g/dL (3.4-5.0); ALBUMIN/GLOBULIN RATIO 0.7 (1.0-1.7); MAGNESIUM 1.7 mg/dL (1.8-2.4); TOTAL BILIRUBIN 0.2 mg/dL (0.2-1.0); TOTAL PROTEIN 7.8 g/dL (6.4-8.2)
[2020-05-21] MEDS ORDERED: IOHEXOL 350 MG/ML 100 ML VIAL. IV ONE (20:00)
[2020-05-21] MEDS ORDERED: CONTRAST GIVEN. MC PRN (20:00)
[2020-05-21 20:16] LABS: ANISOCYTOSIS SLIGHT; PLT ESTIMATE ADEQUATE (ADEQUATE)
[2020-05-21 20:17] LABS: HYPOCHROMIA SLIGHT; MICROCYTOSIS MOD; POLYCHROMASIA SLIGHT
[2020-05-21] MEDS ORDERED: HYDROmorphone 2 MG/ML VIAL IVP ONE (20:30)
--- NOTE | 2020-05-21 20:45 | RAD ---
Exam: CT of chest, abdomen and pelvis with contrast INDICATION: Short of air TECHNIQUE: Sequential axial images through the chest, abdomen and pelvis obtained following the admin istration of 90 mL Omni 350 IV contrast. Sagittal and coronal reformatted images were reconstructed f rom the axial data and reviewed. Comparisons: Chest x-ray 11/06/2018 FINDINGS: Visualized portions of the thyroid are unremarkable. No enlarged mediastinal lymph nodes are identifi ed. Heart size is normal. No pericardial effusion. Thoracic aorta has a normal course and caliber. Pulmon mary lou artery is not enlarged. No pulmonary embolus identified within the main, lobar or segmental pulmo nary arteries. Airways are patent. No consolidation or pneumothorax. No suspicious lung nodules are identified. No p leural effusion or thickening. There is a hypoattenuating lesions noted within the inferior right hepatic lobe series 5 image 34 whi ch measures 1.5 cm incompletely characterized on this study. Otherwise, liver, spleen, pancreas and a drenals are unremarkable. Gallbladder is absent. No perinephric inflammation or hydronephrosis. Evaluation for renal calculi limited secondary to leo y excretion. No perinephric inflammation or hydronephrosis. No ureteral calculi are identified. Bladder is partially distended and not well evaluated. Uterus is not enlarged. No abnormal adnexal ma ss. Large and small bowel are unremarkable. Appendix is not identified. No free intra-abdominal air or fl uid. No obstruction. Abdominal aorta has a normal course caliber. Abdominal vasculature is patent. No enlarged abdominal lymph nodes are identified. No suspicious osseous lesions or acute fractures. There is a paraumbilical hernia which contains fat. IMPRESSION: 1. No pulmonary embolus identified within the main, lobar or segmental pulmonary arteries. 2. No acute process identified within the abdomen or pelvis. 3. Small fat-containing periumbilical hernia measuring up to 7.3 x 3.6 cm transverse dimension. No h erniated bowel or evidence for obstruction. 4. Incompletely evaluated hepatic lesion measuring up to 1.5 cm. Further evaluation with nonemergent /outpatient liver protocol CT or MRI is recommended. Exposure: One or more of the following in the visualized dose reduction techniques were utilized for this examination: 1. Automated exposure control 2. Adjustment of the MA and/or KV according to patient size 3. Use of iterative of reconstructive technique Electronically signed by: Ludwig Webb MD (05/21/2020 8:43 PM) [facility]
[2020-05-21 21:03] VITALS: BP 125/58
--- NOTE | 2020-05-21 21:57 | PHYS DOC ---
Past Medical History Past Medical History: Anemia, Arthritis, CHF, Diabetes-Type II, Fibromyalgia, Hypertension, P.U.D., Other Additional Past Medical Histor: HERNIA,SLEEP APNEA,NEUROPATHY Past Surgical History: Appendectomy, Cholecystectomy, Other Additional Past Surgical Histo: LT KNEE SURGERY, LT CARPAL TUNNEL SURGERY Smoking Status: Former Smoker Alcohol Use: Rarely Drug Use: None General Adult EDM: Chief Complaint: ABDOMINAL PAIN HPI: HPI: Patient is a 64 year old female with history of hypertension, arthritis, anemia, GI bleed, high cholesterol, diabetes type 2, fibromyalgia, who presents to the ED today complaining of shortness of breath that is chronic but has gotten worse in the last 2 weeks. Also complaining of 8 out of 10 generalized mid abdominal pain. Denies anything exacerbating or relieving her abdominal pain. She states her shortness of breath is worse on exertion. Denies any diarrhea. Reports nausea. She states she was seen at the PCPs office, labs were drawn, she was noted to be anemic and also noted to have an elevated D- dimer. Review of Systems: Review of Systems: Constitutional: Denies fever or chills. [] Eyes: Denies change in visual acuity. [] HENT: Denies nasal congestion or sore throat. [] Respiratory: Reports chronic shortness of breath, denies cough Cardiovascular: Denies chest pain or edema. [] GI: Reports abdominal pain with nausea, denies vomiting, bloody stools or diarrhea. [] : Denies dysuria. [] Musculoskeletal: Denies back pain or joint pain. [] Integument: Denies rash. [] Neurologic: Denies headache, focal weakness or sensory changes. [] Psychiatric: Denies depression or anxiety. [] Heart Score: Risk Factors: Risk Factors: DM, Current or recent (<one month) smoker, HTN, HLP, family history of CAD, obesity. Risk Scores: Score 0 - 3: 2.5% MACE over next 6 weeks - Discharge Home Score 4 - 6: 20.3% MACE over next 6 weeks - Admit for Clinical Observation Score 7 - 10: 72.7% MACE over next 6 weeks - Early Invasive Strategies Current Medications: Current Medications Medications (Trade) Dose Ordered Sig/Jt Start Time Stop Time Status Last Admin Dose Admin Famotidine (Pepcid Vial) 20 mg 1X ONCE 05/21/20 18:30 05/21/20 18:31 DC 05/21/20 19:11 20 MG Hydromorphone HCl (Dilaudid) 1 mg 1X ONCE 05/21/20 20:30 05/21/20 20:31 DC 05/21/20 20:55 1 MG Info (CONTRAST GIVEN -- Rx MONITORING) 1 each PRN DAILY PRN 05/21/20 20:00 05/23/20 19:59 Iohexol (Omnipaque 350 Mg/ml) 90 ml 1X ONCE 05/21/20 20:00 05/21/20 20:01 DC 05/21/20 20:04 90 ML Morphine Sulfate (Morphine Sulfate) 5 mg 1X ONCE 05/21/20 18:30 05/21/20 18:31 DC 05/21/20 19:11 5 MG Ondansetron HCl (Zofran) 4 mg 1X ONCE 05/21/20 18:30 05/21/20 18:31 DC 05/21/20 19:11 4 MG Allergies: Allergies: Allergies Coded Allergies Type Severity Reaction Last Updated Verified milnacipran HCl Allergy Severe severe elevation of B/P 01/16/16 Yes pregabalin Allergy Intermediate swelling of extremities 01/16/16 Yes erythromycin base Allergy Mild rash 05/06/16 Yes Physical Exam: PE: Constitutional: Morbidly obese patient, no acute distress, non-toxic appearance. [] HENT: Normocephalic, atraumatic, bilateral external ears normal, oropharynx moist, no oral exudates, nose normal. [] Eyes: PERRLA, EOMI, conjunctiva normal, no discharge. [] Neck: Normal range of motion, no tenderness, supple, no stridor. [] Cardiovascular:Heart rate regular rhythm, no murmur [] Lungs & Thorax: Bilateral breath sounds clear to auscultation [] Abdomen: Old healed surgical incision noted midline abdomen. Bowel sounds normal, soft, no tenderness, no masses, no pulsatile masses. [] Skin: Warm, dry, no erythema, no rash. [] Back: No tenderness, no CVA tenderness. [] Extremities: No tenderness, no cyanosis, no clubbing, ROM intact, no edema. [] Neurologic: Alert and oriented X 3, normal motor function, normal sensory function, no focal deficits noted. [] Psychologic: Affect normal, judgement normal, mood normal. [] Current Patient Data: Labs: Laboratory Tests Test 05/21/20 18:10 05/21/20 18:45 Urine Collection Type Void Urine Color Yellow Urine Clarity Clear Urine pH 5.0 (<5.0-8.0) Urine Specific [place]ville 1.025 (1.000-1.030) Urine Protein Negative mg/dL (NEG-TRACE) Urine Glucose (UA) Negative mg/dL (NEG) Urine Ketones (Stick) Negative mg/dL (NEG) Urine Blood Negative (NEG) Urine Nitrite Negative (NEG) Urine Bilirubin Negative (NEG) Urine Urobilinogen Dipstick 1.0 mg/dL (0.2 mg/dL) Urine Leukocyte Esterase Small (NEG) Urine RBC 0 /HPF (0-2) Urine WBC 5-10 /HPF (0-4) Urine Squamous Epithelial Cells Mod /LPF Urine Bacteria Few /HPF (0-FEW) Urine Mucus Slight /LPF Urine Opiates Screen Pos (NEG) Urine Methadone Screen Neg (NEG) Urine Barbiturates Neg (NEG) Urine Phencyclidine Screen Neg (NEG) Urine Amphetamine/Methamphetamine Neg (NEG) Urine Benzodiazepines Screen Neg (NEG) Urine Cocaine Screen Neg (NEG) Urine Cannabinoids Screen Neg (NEG) Urine Ethyl Alcohol Neg (NEG) White Blood Count 10.8 x10^3/uL (4.0-11.0) Red Blood Count 3.54 x10^6/uL (3.50-5.40) Hemoglobin 7.9 g/dL (12.0-15.5) L Hematocrit 25.9 % (36.0-47.0) L Mean Corpuscular Volume 73 fL (79-100) L Mean Corpuscular Hemoglobin 22 pg (25-35) L Mean Corpuscular Hemoglobin Concent 30 g/dL (31-37) L Red Cell Distribution Width 17.2 % (11.5-14.5) H Platelet Count 352 x10^3/uL (140-400) Neutrophils (%) (Auto) 68 % (31-73) Lymphocytes (%) (Auto) 19 % (24-48) L Monocytes (%) (Auto) 9 % (0-9) Eosinophils (%) (Auto) 3 % (0-3) Basophils (%) (Auto) 1 % (0-3) Neutrophils # (Auto) 7.4 x10^3/uL (1.8-7.7) Lymphocytes # (Auto) 2.0 x10^3/uL (1.0-4.8) Monocytes # (Auto) 1.0 x10^3/uL (0.0-1.1) Eosinophils # (Auto) 0.3 x10^3/uL (0.0-0.7) Basophils # (Auto) 0.1 x10^3/uL (0.0-0.2) Platelet Estimate Adequate (ADEQUATE) Polychromasia Slight Hypochromasia Slight Anisocytosis Slight Microcytosis Mod Sodium Level 139 mmol/L (136-145) Potassium Level 5.0 mmol/L (3.5-5.1) Chloride Level 103 mmol/L (98-107) Carbon Dioxide Level 26 mmol/L (21-32) Anion Gap 10 (6-14) Blood Urea Nitrogen 22 mg/dL (7-20) H Creatinine 1.0 mg/dL (0.6-1.0) Estimated GFR (Cockcroft-Gault) 55.8 BUN/Creatinine Ratio 22 (6-20) H Glucose Level 215 mg/dL (70-99) H Calcium Level 9.5 mg/dL (8.5-10.1) Magnesium Level 1.7 mg/dL (1.8-2.4) L Total Bilirubin 0.2 mg/dL (0.2-1.0) Aspartate Amino Transferase (AST) 28 U/L (15-37) Alanine Aminotransferase (ALT) 22 U/L (14-59) Alkaline Phosphatase 96 U/L (46-116) Troponin I Quantitative < 0.017 ng/mL (0.000-0.055) NC-Ond-G-Type Natriuretic Peptide 26 pg/mL (0-124) Total Protein 7.8 g/dL (6.4-8.2) Albumin 3.2 g/dL (3.4-5.0) L Albumin/Globulin Ratio 0.7 (1.0-1.7) L Laboratory Tests 05/21/20 18:45 Laboratory Tests 05/21/20 18:45 Vital Signs: Vital Signs Date Time Temp Pulse Resp B/P (MAP) Pulse Ox O2 Delivery O2 Flow Rate FiO2 05/21/20 21:03 101 19 125/58 (80) 95 Room Air 05/21/20 18:05 99.8 99.8 EKG: EK Interpreted by Dr. Vasquez sinus rhythm HR 99 no STEMI[] Radiology/Procedures: Radiology/Procedures: []PROCEDURE: CT ANGIO CHEST W ABD PEL W/ Exam: CT of chest, abdomen and pelvis with contrast INDICATION: Short of air TECHNIQUE: Sequential axial images through the chest, abdomen and pelvis obtained following the administration of 90 mL Omni 350 IV contrast. Sagittal and coronal reformatted images were reconstructed from the axial data and reviewed. Comparisons: Chest x-ray 11/06/2018 FINDINGS: Visualized portions of the thyroid are unremarkable. No enlarged mediastinal lymph nodes are identified. Heart size is normal. No pericardial effusion. Thoracic aorta has a normal course and caliber. Pulmonary artery is not enlarged. No pulmonary embolus identified within the main, lobar or segmental pulmonary arteries. Airways are patent. No consolidation or pneumothorax. No suspicious lung nodules are identified. No pleural effusion or thickening. There is a hypoattenuating lesions noted within the inferior right hepatic lobe series 5 image 34 which measures 1.5 cm incompletely characterized on this study. Otherwise, liver, spleen, pancreas and adrenals are unremarkable. Gallbladder is absent. No perinephric inflammation or hydronephrosis. Evaluation for renal calculi limited secondary to early excretion. No perinephric inflammation or hydroneph rosis. No ureteral calculi are identified. Bladder is partially distended and not well evaluated. Uterus is not enlarged. No abnormal adnexal mass. Large and small bowel are unremarkable. Appendix is not identified. No free intra-abdominal air or fluid. No obstruction. Abdominal aorta has a normal course caliber. Abdominal vasculature is patent. No enlarged abdominal lymph nodes are identified. No suspicious osseous lesions or acute fractures. There is a paraumbilical hernia which contains fat. IMPRESSION: 1. No pulmonary embolus identified within the main, lobar or segmental pulmonary arteries. 2. No acute process identified within the abdomen or pelvis. 3. Small fat-containing periumbilical hernia measuring up to 7.3 x 3.6 cm transverse dimension. No herniated bowel or evidence for obstruction. 4. Incompletely evaluated hepatic lesion measuring up to 1.5 cm. Further evaluation with nonemergent/outpatient liver protocol CT or MRI is recommended. Exposure: One or more of the following in the visualized dose reduction techniques were utilized for this examination: 1. Automated exposure control 2. Adjustment of the MA and/or KV according to patient size 3. Use of iterative of reconstructive technique Electronically signed by: Ludwig Hamilton MD (05/21/2020 8:43 PM) [facility] DICTATED and SIGNED BY: LUDIWG HAMILTON MD DATE: 05/21/[id number] 0 Course & Med Decision Making: Course & Med Decision Making Pertinent Labs and Imaging studies reviewed. (See chart for details) This is a 64-year-old female patient presenting to the ED today complaining of chronic shortness of breath, abdominal pain for 2 weeks. Was seen at the PCPs office and noted to have an elevated D-dimer. CBC with hemoglobin of 7.9, 25.9. Hematocrit, CMP with glucose of 255, anion gap is normal. UA noted for small amount of leukocytes but it is contaminated with squamous cells epithelium. CTA chest abdomen and pelvis is negative for PE, noted for liver lesion which I discussed with patient, noted for umbilical hernia. Discharge to home. Follow-up with PCP and GI. Bernarda Disclaimer: Bernarda Disclaimer: This electronic medical record was generated, in whole or in part, using a voice recognition dictation system. Departure Departure Impression: Primary Impression: Abdominal pain Qualified Codes: R10.33 - Periumbilical pain Additional Impressions: Shortness of breath Anemia Qualified Codes: D64.9 - Anemia, unspecified Disposition: 01 DC HOME SELF CARE/HOMELESS Condition: STABLE Referrals: KAYCE DOMINGUEZ APRN (PCP) Follow-up next week COREY SHAH MD follow up next week Patient Instructions: Abdominal Pain (Nonspecific), Shortness of Breath, [id number] Additional Instructions: You were evaluated in the emergency room. 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 You were noted to be anemic. Ensure you are taking iron tablets. Please come back to the ED at any point symptoms worsen. YULISSA BAR APRN May 21, 2020 21:57
--- NOTE | 2020-05-21 21:57 | EKG ---
[facility] [address] [place] [address] Test Date: 2020-05-21 Test Time: 21:01:34 Pat Name: GERMAIN LINK Department: Room: Gender: F Manager Critical Care: : 1955 Requested By: YULISSA BAR Order Number: [id number] Reading MD: Measurements Intervals Emmett Rate: 99 P: 0 KS: 176 QRS: -11 QRSD: 76 T: 36 QT: 326 QTc: 418 Interpretive Statements SINUS RHYTHM LEFTWARD AXIS NO SPECIFIC ECG ABNORMALITIES RI6.02 No previous ECG available for comparison
== END 2020-05-21 22:25 | disposition home or self-care (01) ==
LOC: ER 17:35
DX: R10.33 Periumbilical pain (principal); R06.02 Shortness of breath; D64.9 Anemia, unspecified; E11.40 Type 2 diabetes mellitus with diabetic neuropathy, unspecified; I11.0 Hypertensive heart disease with heart failure; I50.9 Heart failure, unspecified; Z87.891 Personal history of nicotine dependence; Z90.89 Acquired absence of other organs; Z90.49 Acquired absence of other specified parts of digestive tract; Z88.1 Allergy status to other antibiotic agents; Z88.8 Allergy status to other drugs, medicaments and biological substances
CPT/HCPCS: 36415; 71275; 74177; 80053; 80307; 81001; 83735; 83880; 84484; 85025; 87086; 93005; 96374; 96375; 99285; J1170; J2270; J2405; J3490; Q9967

== ENCOUNTER → 2020-06-02 | Outpatient (CLI) | payer MEDICAID, MEDICARE ==
[2020-05-21 21:03] VITALS: BP 125/58
[~2020-06-02] MED LIST changes: +REGADENOSON 0.4 MG/5 ML DISP.SYRIN. IV ONE
--- NOTE | 2020-06-03 14:01 | CARD ---
MR#: [id number] Date of Study: 06/03/2020 Ordering Physician: NEGRITO CAM, Referring Physician: NEGRITO CAM, Tech: Radha Starr [facility] APPROVED REPORT EXAM: Two-dimensional and M-mode echocardiogram with Doppler and color Doppler. Other Information Quality : FairHR: 87bpm Technically limited study due to Obesity INDICATION Chest Pain RISK FACTORS Hypertension Hyperlipidemia Diabetes 2D DIMENSIONS RVDd3.0 (2.9-3.5cm)Left Atrium(2D)4.7 (1.6-4.0cm) IVSd1.2 (0.7-1.1cm)Aortic Root(2D)3.6 (2.0-3.7cm) LVDd5.6 (3.9-5.9cm)LVOT Diameter2.3 (1.8-2.4cm) PWd1.3 (0.7-1.1cm)LVDs3.9 (2.5-4.0cm) FS (%) 30.8 %SV88.2 ml LVEF(%)57.7 (>50%) Aortic Valve AoV Peak Destin.189.3cm/sAoV VTI41.9cm AO Peak GR.14.3mmHgLVOT Peak Destin.168.3cm/s LVOT VTI 45.00cmAO Mean GR.10mmHg CYNTHIA (VMAX)2.39fh0QIS (VTI)4.37cm2 Mitral Valve MV E Bthswxod05.0cm/sMV DECEL [id number] MV A Zzbvgnuz299.5cm/sMV E Mean Gr.3mmHg MV FHC184roH/A Ratio0.6 MVA (PHT)2.06cm2 TDI E/Lateral E'8.9E/Medial E'7.0 Pulmonary Valve PV Peak Ncmpzfia611.9cm/sPV Peak Grad.4mmHg Tricuspid Valve TR P. Xvszrulp125tz/sRAP ERPEOMBY0ioZy TR Peak Gr.81zxUfNCTW18yvLx LEFT VENTRICLE The left ventricle is normal size. There is mild concentric left ventricular hypertrophy. The left ve ntricular systolic function is normal and the ejection fraction is within normal range. The Ejection Fraction is 55-60%. There is normal LV segmental wall motion. Transmitral Doppler flow pattern is Gra de I-abnormal relaxation pattern. RIGHT VENTRICLE The right ventricle is borderline dilated. There is normal right ventricular wall thickness. The righ t ventricular systolic function is normal. ATRIA The left atrium size is normal. The right atrium size is normal. The interatrial septum is intact wit h no evidence for an atrial septal defect or patent foramen ovale as noted on 2-D or Doppler imaging. AORTIC VALVE The aortic valve is normal in structure and function. Doppler and Color Flow revealed trace aortic re gurgitation. Calculated aortic valve area is 3.53 cm2 with maximum pressure gradient of 18 mmHg and m david pressure gradient of 12 mmHg. There is no significant aortic valvular stenosis. MITRAL VALVE The mitral valve is normal in structure and function. There is no evidence of mitral valve prolapse. There is no mitral valve stenosis. Doppler and Color-flow revealed trace mitral regurgitation. TRICUSPID VALVE The tricuspid valve is normal in structure and function. Doppler and Color Flow revealed trace tricus pid regurgitation with an estimated PAP of 17 mmHg. There is no tricuspid valve stenosis. PULMONIC VALVE The pulmonic valve is not well visualized. Doppler and Color Flow revealed trace pulmonic valvular re gurgitation. GREAT VESSELS The aortic root is mildly enlarged measuring 3.6 cm. The IVC was not well visualized. PERICARDIAL EFFUSION There is no evidence of significant pericardial effusion. Critical Notification Critical Value: No <Conclusion> The left ventricle is normal size. The left ventricular systolic function is normal and the ejection fraction is within normal range. The Ejection Fraction is 55-60%. There is mild concentric left ventricular hypertrophy. Doppler and Color Flow revealed trace aortic regurgitation. There is no significant aortic valvular stenosis. Doppler and Color-flow revealed trace mitral regurgitation. Doppler and Color Flow revealed trace tricuspid regurgitation with an estimated PAP of 17 mmHg. The aortic root is mildly enlarged measuring 3.6 cm. Signed by : Abilio Claros MD Electronically Approved : 06/03/2020 14:01:45
--- NOTE | 2020-06-03 14:17 | RAD ---
MR#: [id number] Date of Study: 06/03/2020 Ordering Physician: NEGRITO CAM, Referring Physician: DELILAH JENSEN Tech: RT Aliyah (R) (N) APPROVED REPORT Test Type: Pharmacological Stress Nurse/Tech: Loretta Kumar RN Test Indications: Chest Pain Cardiac History: HTN, See EMR. Medications: See EMR. Medical History: DM, See EMR. Resting ECG: SR Resting Heart Rate: 95 bpm Resting Blood Pressure: 123/60mmHg Pretest Chest Pain: No chest pain Nurse/Tech Notes Lungs CTA, Heart tones regular. Consent: The procedure was explained to the patient in lay terms. Informed consent was witnessed. Benjy eout was entered into [employer]. History and Stress Test performed by JULISSA Jurado, RASTA (R) (N) Pharm. Details Pharmacologic stress testing was performed using 0.4mg per 5ml of regadenoson given intravenously ove r 7-10 seconds. Stress Symptoms No chest pain or symptoms. POST EXERCISE Reason for Termination: Infusion complete Max HR: 98 bpm Max Blood Pressure: 113/48mmHg Blood Pressure response to exercise: Normal blood pressure response during stress. Heart Rate response to exercise: WNL Chest Pain: No. Arrhythmia: No. ST Change: No. INTERPRETATION Stress EKG Conclusion: The resting EKG shows a sinus rhythm with nonspecific ST-T wave changes. The stress EKG shows no significant changes from baseline. No EKG evidence of stress-induced ischemia. Imaging Protocol IMAGE PROTOCOL: Rest Tc-99m/stress Tc-99m 2 days Rest: Stress: Viability: Radiopharm.Tc99m KyxyekhyvYh21n Sestamibi Hlah37pFw 33mCi Duration 10min. 12min. Img Date 06/02/2020 06/03/2020 Inj-Img Jepx17jfw. 60min. Rest Admin Site:IV - Left HandAdministrator:RT Aliyah (R)(N) Stress Admin Site: IV - Right HandAdministrator: JULISSA Jurado, RASTA (R)(N) STRESS DATA End Diast. Vol.99.0mlAv. Heart Rate78.0bpm End Syst. Vol.19.0mlCO Index BSA0.0L/min Myocardial Dqnf401.0gEject. Ewquxwjs50.0% Stress Rates Pk. Fill Rate3.67EDV/secLVtime Pk. Fill 220.91msec Pk. Empty Rate5.12ESV/secLVtime Pk. Yrezp007.88msec 1/3 Pk. Fill1.26EDV/sec Stress Scores Regional WT0.00Summed WT2.00 Regional WM0.00Summed WM0.00 LV Perfusion The stress scans showed no significant defects. The rest scans showed no significant defects. Nuclear imaging shows no reversible ischemia or infarct. Wall Motion Left ventricular systolic function is normal with an ejection fraction of greater than 70%. LV Perf. Quant 17 Seg. SSS2.00 17 Seg. SRS3.00 17 Seg. SDS0.00 Stress Defect Extent (% LAD)0.00Rest Defect Extent (% LAD)0.00Rev. Defect Extent (% LAD)0.00 Stress Defect Extent (% LCX) 16.30Rest Defect Extent (% LCX)31.30Rev. Defect Extent (% LCX)12.50 Stress Defect Extent (% RCA)0.00Rest Defect Extent (% RCA)0.00Rev. Defect Extent (% RCA)0.00 Stress Defect Extent (% FIGUEROA)3.30Rest Defect Extent (% FIGUEROA)5.90Rev. Defect Extent (% FIGUEROA)2.60 Conclusion 1. No EKG evidence of stress-induced ischemia. 2. Nuclear imaging shows no reversible ischemia or infarct. 3. Normal left ventricular systolic function with an ejection fraction of greater than 70%. 4. Low risk Lexiscan nuclear stress test. Signed by : Abilio Claros MD Electronically Approved : 06/03/2020 14:17:37
== END ==
LOC: NM 09:34
PROVIDERS: ATTEND Internal Medicine Cardiovascular Disease
DX: I10 Essential (primary) hypertension (principal)
CPT/HCPCS: 78452; A9500; 93017; 93306; J2785

== ENCOUNTER → 2021-08-20 | Outpatient (CLI) | payer MEDICARE ==
[~2021-08-20] MED LIST changes: +CYCL10TA19 PO; -CYCL10TA2 PO; -DULO60CA6 PO; +DULO60CA7 PO; -REGADENOSON 0.4 MG/5 ML DISP.SYRIN. IV ONE
--- NOTE | 2021-08-20 15:36 | RAD ---
MR#: [id number] Date of Study: 08/20/2021 Ordering Physician: NEGRITO ALDANA, Referring Physician: NEGRITO ALDANA, Tech: Burak Lane MBA, RDMS, RVT, RDCS, RTR APPROVED REPORT Patient Location : OUT-PATIENT Indications CHRONIC VENOUS INSUFFICIENCY Findings Grayscale images of superficial veins and saphenofemoral junctions bilateral lower extremities were g rossly unremarkable without any evidence of thrombus. Spectral waveform and color duplex analysis di d not show any significant reflux involving bilateral greater or lesser saphenous veins. Critical Notification Critical Value: No <Conclusion> Bilateral lower extremity venous reflux study did not show any significant insufficiency involving gr eater or lesser saphenous veins. Signed by : Negrito Aldana, Electronically Approved : 08/20/2021 15:35:32
--- NOTE | 2021-08-24 11:42 | CARD ---
MR#: [id number] Date of Study: 08/20/2021 Ordering Physician: NEGRITO CAM, Referring Physician: Eugenio JENSEN: JASON UHYNH [facility] APPROVED REPORT EXAM: Two-dimensional and M-mode echocardiogram with Doppler and color Doppler. Other Information Quality : Technically LimitedHR: 104bpm Rhythm : NSRTechnically limited study due to body habitus. INDICATION Arrhythmia 2D DIMENSIONS Left Atrium(2D)1.8 (1.6-4.0cm)IVSd1.1 (0.7-1.1cm) Aortic Root(2D)3.8 (2.0-3.7cm)LVDd4.4 (3.9-5.9cm) LVOT Diameter2.1 (1.8-2.4cm)PWd1.5 (0.7-1.1cm) LVDs3.4 (2.5-4.0cm)FS (%) 23.8 % SV42.6 mlLVEF(%)47.7 (>50%) Aortic Valve AoV Peak Destin.219.0cm/sAoV VTI47.2cm AO Peak GR.19.2mmHgAO Mean GR.12mmHg Mitral Valve MV E Gvdyooxr83.8cm/sMV DECEL BINH390zu MV A Sqqtycdw135.9cm/sE/A Ratio0.5 Tricuspid Valve TR P. [id number]/sRAP [id number] TR Peak Gr.[id number] LEFT VENTRICLE The left ventricle is normal size. There is mild concentric left ventricular hypertrophy. The left ve ntricular systolic function is normal and the ejection fraction is within normal range. EF 55% Grossl y no clear wall motion abnormalities but images are severely limited due to body habitus. Tissue Dopp ler imaging reveals abnormal left ventricular diastolic dysfunction. No left ventricle thrombus noted on this study. There is no ventricular septal defect visualized. There is no left ventricular aneury sm. There is no mass noted in the left ventricle. RIGHT VENTRICLE The right ventricle is normal size. There is normal right ventricular wall thickness. The right ventr icular systolic function is normal. ATRIA The left atrium size is normal. The right atrium size is normal. The interatrial septum is intact wit h no evidence for an atrial septal defect or patent foramen ovale as noted on 2-D or Doppler imaging. AORTIC VALVE The aortic valve is not well visualized. No aortic regurgitation is present. There is no aortic valvu lar stenosis. There is no aortic valvular vegetation. MITRAL VALVE Not well visualized. There is no evidence of mitral valve prolapse. There is no mitral valve stenosis . There is no mitral valve regurgitation noted. TRICUSPID VALVE Not well visualized. Doppler and Color Flow revealed trace to mild tricuspid regurgitation. The PA pr essure was estimated at 16 mmHg. There is no tricuspid valve prolapse or vegetation. There is no tric uspid valve stenosis. PULMONIC VALVE The pulmonic valve is not well visualized. There is no pulmonic valvular regurgitation. There is no p ulmonic valvular stenosis. GREAT VESSELS The aortic root is normal in size. The ascending aorta is normal in size. The IVC is normal in size a nd collapses >50% with inspiration. PERICARDIAL EFFUSION There is no pleural effusion. There is no evidence of significant pericardial effusion. Critical Notification Critical Value: No <Conclusion> The left ventricular systolic function is normal and the ejection fraction is within normal range. EF 55% Grossly no clear wall motion abnormalities but images are severely limited due to body habitus. Signed by : Robert Cox, Electronically Approved : 08/24/2021 11:41:25
== END ==
LOC: ECHO 13:00
PROVIDERS: ATTEND Internal Medicine Cardiovascular Disease
DX: I07.1 Rheumatic tricuspid insufficiency (principal); I87.2 Venous insufficiency (chronic) (peripheral); R06.00 Dyspnea, unspecified
CPT/HCPCS: 93306; 93970; C8929